=== PATIENT | female | born 1990 | race Caucasian/White ===

== ENCOUNTER → 2020-04-04 | Outpatient (CLI) | payer SELFPAY ==
[2016-09-05 20:10] VITALS: BMI 26.2
[2020-04-06 20:07] LABS: Chlamydia By Nucleic Acid AMP Negative (Negative)
[2020-04-07 01:58] LABS: Gonococcus By Nucleic Acid AMP Negative (Negative)
== END | disposition home or self-care (01) ==
PROVIDERS: Visit Provider Student in an Organized Health Care Education/Training Program
DX: Z11.3 Encounter for screening for infections with a predominantly sexual mode of transmission (principal); Z32.01 Encounter for pregnancy test, result positive
CPT/HCPCS: 87491; 87591

== ENCOUNTER → 2020-05-02 10:55 | Outpatient (CLI) | payer SELFPAY ==
[2020-05-02 13:32] LABS: Absolute Lymphocyte Count 1.88 X10^3/uL (0.83-4.51); Absolute Neutrophil Count 5.8 X10^3/uL (2.0-7.7); Basophil# 0.03 X10^3/uL; Basophil% 0.4 % (0-1); Eosinophil# 0.12 X10^3/uL; Eosinophils% 1.4 % (0-5); Hematocrit 37.1 % (37-47); Hemoglobin 12.1 g/dL (12.0-15.0); Lymphocyte # 1.88 X10^3/ul (4.0); Lymphocyte % 22.4 % (19-41); Mean Corp Hgb Conc 32.6 g/dL (32-36); Mean Corpuscular Hgb 28.7 pg (27.0-32.0); Mean Corpuscular Volume 88.1 fL (81-99); Mean Platelet Vol. 9.3 fl (6.2-12.0); Monocyte# 0.49 X10^3/uL; Monocyte% 5.8 % (0-10); NRBC Flagged by Analyzer 0 % (0-5); Neutrophil % 69.3 % (47-70); Platelet Count 282 K/mm3 (150-450); RBC Distribution Width CV 12.5 % (11.6-14.6); RBC Distribution Width SD 39.8 fl (35.1-43.9); Red Blood Count 4.21 M/mm3 (4.2-5.4); White Blood Count 8.4 K/mm3 (4.4-11.0)
[2020-05-02 13:33] LABS: Color, Urine Yellow (Yellow); Glucose, Dipstick Normal (Normal); Ketone-Dipstick Negative (Negative); Leukocyte Esterase-Dipstick 25 /ul (Negative); Nitrite-Dipstick Negative (Negative); Occult Blood-Urine Negative /ul (Negative); Protein-Dipstick Negative (Negative); Urine Bilirubin Dipstick Negative (Negative); Urine Clarity Clear (Clear); Urine Urobilinogen Normal (Normal)
[2020-05-02 13:48] LABS: Amphetamine Urine VISTA NEGATIVE (<1000 ng/mL); Barbiturate Urine VISTA NEGATIVE (< 200 ng/mL); Benzodiazepine Urine VISTA NEGATIVE (< 200 ng/mL); Cocaine Urine VISTA NEGATIVE (< 300 ng/mL); Ecstacy Urine VISTA NEGATIVE (< 500 ng/mL); Methadone Urine VISTA NEGATIVE (< 300 ng/mL); PCP Urine VISTA NEGATIVE (< 25 ng/mL); THC Urine VISTA NEGATIVE (< 50 ng/mL); Vista UDS pH Range 6
[2020-05-02 14:20] LABS: HIV - WCH Non-Reactive (Nonreactive); Hepatitis B Surface Antigen Non-Reactive (Nonreactive); Rubella IgG 39.2 IU/mL
[2020-05-02 14:21] LABS: Hepatitis C Antibody Non-Reactive (Nonreactive)
[2020-05-03 21:00] LABS: V-Zoster IgG (Immunity) 1247 index (Immune >165)
[2020-05-04 01:46] LABS: Prenatal RPR NONREACTIVE (NONREACTIVE)
== END ==
PROVIDERS: Visit Provider Student in an Organized Health Care Education/Training Program
DX: Z34.82 Encounter for supervision of other normal pregnancy, second trimester (principal)
CPT/HCPCS: 36415; 80307; 81002; 85025; 86703; 86762; 86787; 86803; 87086; 87088; 87340

== ENCOUNTER → 2020-05-30 | Outpatient (CLI) | payer SELFPAY ==
[2016-09-05 20:10] VITALS: BMI 26.2
[2020-06-02 17:41] LABS: HPV Reflexed? NOT INDICATED
== END | disposition home or self-care (01) ==
LOC: LABSPEC 11:13
PROVIDERS: Visit Provider Student in an Organized Health Care Education/Training Program
DX: Z12.4 Encounter for screening for malignant neoplasm of cervix (principal)
CPT/HCPCS: 88175; G0145

== ENCOUNTER → 2020-07-25 13:43 | Outpatient (CLI) | payer SELFPAY ==
[2016-09-05 20:10] VITALS: BMI 26.2
[2020-07-25 15:48] LABS: Hematocrit 30.1 % (37-47); Mean Corp Hgb Conc 33.2 g/dL (32-36); Mean Corpuscular Hgb 28.9 pg (27.0-32.0); Mean Platelet Vol. 9.2 fl (6.2-12.0); Platelet Count 308 K/mm3 (150-450); RBC Distribution Width CV 12.5 % (11.6-14.6); RBC Distribution Width SD 39.5 fl (35.1-43.9); Red Blood Count 3.46 M/mm3 (4.2-5.4); White Blood Count 11.3 K/mm3 (4.4-11.0)
[2020-07-25 15:53] LABS: Glucose Challenge Gest 1H 50g 98 mg/dL (70-140)
== END ==
PROVIDERS: Visit Provider Student in an Organized Health Care Education/Training Program
DX: Z34.82 Encounter for supervision of other normal pregnancy, second trimester (principal)
CPT/HCPCS: 36415; 82950; 85027

== ENCOUNTER → 2020-08-08 11:33 | Outpatient (CLI) | payer SELFPAY ==
[2016-09-05 20:10] VITALS: BMI 26.2
[2020-08-08 12:38] LABS: Hematocrit 30.8 % (37-47); Hemoglobin 9.9 g/dL (12.0-15.0); Mean Corp Hgb Conc 32.1 g/dL (32-36); Mean Corpuscular Hgb 27.2 pg (27.0-32.0); Mean Corpuscular Volume 84.6 fL (81-99); Platelet Count 319 K/mm3 (150-450); RBC Distribution Width CV 12.5 % (11.6-14.6); RBC Distribution Width SD 37.9 fl (35.1-43.9); Red Blood Count 3.64 M/mm3 (4.2-5.4); White Blood Count 10.7 K/mm3 (4.4-11.0)
[2020-08-08 12:44] LABS: ALB/GLOB Ratio 0.7 RATIO (0.9-2.4); AST(SGOT) 13 U/L (15-37); Alanine Aminotransfer ALT/SGPT 12 U/L (13-56); Albumin, Serum 2.9 g/dL (3.2-5.0); Alkaline Phosphatase 91 U/L (45-117); Anion Gap 6 (5-15); BUN 7 mg/dL (7-18); BUN/Creat Ratio 14.3 RATIO (10-20); Calcium,Total 8.7 mg/dL (8.5-10.1); Chloride 107 mmol/L (98-107); Creatinine, Serum 0.49 mg/dL (0.55-1.02); EST Glomerular Filtration Rate 158 mL/min (>60); Est Glom Filt Rate - Afr Amer 191 mL/min (>60); Globulin 4.3 g/dL (2.2-4.2); Glucose 74 mg/dL (74-106); Potassium 3.4 mmol/L (3.5-5.1); Protein, Total 7.2 g/dL (6.4-8.2); Sodium Level 137 mmol/L (136-145)
== END ==
PROVIDERS: Visit Provider Student in an Organized Health Care Education/Training Program
DX: O26.86 Pruritic urticarial papules and plaques of pregnancy (PUPPP) (principal); Z3A.00 Weeks of gestation of pregnancy not specified
CPT/HCPCS: 36415; 80053; 85027

== ENCOUNTER → 2020-10-05 10:31 | Outpatient (CLI) | payer SELFPAY ==
[2016-09-05 20:10] VITALS: BMI 26.2
[2020-10-05 13:12] LABS: Hematocrit 31.4 % (37-47); Hemoglobin 9.6 g/dL (12.0-15.0); Mean Corp Hgb Conc 30.6 g/dL (32-36); Mean Corpuscular Hgb 24.7 pg (27.0-32.0); Mean Corpuscular Volume 80.9 fL (81-99); Platelet Count 304 K/mm3 (150-450); RBC Distribution Width SD 41.1 fl (35.1-43.9); Red Blood Count 3.88 M/mm3 (4.2-5.4); White Blood Count 13.5 K/mm3 (4.4-11.0)
[2020-10-05 13:28] LABS: Ferritin 6 ng/mL (8-252)
== END ==
PROVIDERS: PCP Family Medicine; Visit Provider Student in an Organized Health Care Education/Training Program
DX: Z36.85 Encounter for antenatal screening for Streptococcus B (principal)
CPT/HCPCS: 36415; 82728; 85027; 87081

== ENCOUNTER → 2020-11-03 | Outpatient (CLI) | payer SELFPAY ==
[2016-09-05 20:10] VITALS: BMI 26.2
== END | disposition home or self-care (01) ==
LOC: LABSPEC 10:11
PROVIDERS: PCP Family Medicine; Visit Provider Student in an Organized Health Care Education/Training Program
DX: Z36.85 Encounter for antenatal screening for Streptococcus B (principal)
CPT/HCPCS: 87081

== ENCOUNTER 2020-11-04 23:53 | Inpatient (IN) | payer SELFPAY ==
[2016-09-05 20:10] VITALS: BMI 26.2
[2020-11-05] VITALS (18 sets, daily range): BP systolic 107–144; BP diastolic 42–84; PULSE 67–83; RESP 16–18; TEMP 35.6–36.8; O2SAT 99–100; BMI 28.0
[2020-11-05] MEDS: 0.9% Saline Lock 10 ML Syringe IV (00:13)
--- NOTE | 2020-11-05 00:26 | PCM.HPOB.BLA ---
History and Physical Chief complaint: Contractions History of present illness: 30-year-old G2, P1 at 40 weeks and 6 days with LUIS: 10/31/2019 1 x 10-week ultrasound arrives with contractions. Denies headache, chest pain, shortness of breath, nausea vomiting, right upper quadrant pain. Patient states good movement. Obstetrical history: G1: at term G2: Current Past medical history: None Medications: vitamin Past surgical history: [place] teeth extraction Allergies: No known drug allergies Social history: Denies smoking, alcohol, drug use Family history: Denies history of DVT or PE Review of systems: Besides the above pertinent positives a full review of systems was performed and found to be negative Physical exam: Vital Signs Temp Pulse BP Pulse Ox 11/05/20 00:08 97.3 F L 83 144/84 H 11/05/20 00:07 97.4 F L 99 General: Normal-appearing no acute distress HEENT: Normocephalic atraumatic no cervical lymphadenopathy Cardiac/respiratory: No use of accessory muscles, nonlabored breathing Abdomen: Soft, nontender, gravid Extremities: No peripheral edema normal peripheral pulses Psych: Normal affect normal demeanor nonpressured speech Assessment and plan: This is a 30-year-old G2, P1 at 40 weeks and 6 days in labor -Admit labor and delivery -CEFM -GBS negative -Routine orders -Anesthesia to see
[2020-11-05 00:54] LABS: Absolute Lymphocyte Count 3.14 X10^3/uL (0.83-4.51); Absolute Neutrophil Count 9.1 X10^3/uL (2.0-7.7); Basophil# 0.05 X10^3/uL; Basophil% 0.4 % (0-1); Eosinophil# 0.15 X10^3/uL; Eosinophils% 1.1 % (0-5); Hematocrit 32.4 % (37-47); Hemoglobin 9.7 g/dL (12.0-15.0); Lymphocyte # 3.14 X10^3/ul (0.83-4.51); Lymphocyte % 23.2 % (19-41); Mean Corp Hgb Conc 29.9 g/dL (32-36); Mean Corpuscular Hgb 23.3 pg (27.0-32.0); Mean Corpuscular Volume 77.9 fL (81-99); Mean Platelet Vol. 10.2 fl (6.2-12.0); Monocyte# 0.96 X10^3/uL; Monocyte% 7.1 % (0-10); NRBC Flagged by Analyzer 0.2 % (0-5); Neutrophil # 9.08 X10^3/uL (2.7-7.7); Neutrophil % 67.2 % (47-70); Platelet Count 317 K/mm3 (150-450); RBC Distribution Width CV 15.9 % (11.6-14.6); RBC Distribution Width SD 43.8 fl (35.1-43.9); Red Blood Count 4.16 M/mm3 (4.2-5.4); White Blood Count 13.5 K/mm3 (4.4-11.0)
--- NOTE | 2020-11-05 01:02 | PCM.PN.OB ---
Subjective: Patient going natural, painful contractions but handling it well. - Physical Exam Vitals/I&O's: Vital Signs Temp Pulse BP Pulse Ox 97.3 F L 83 144/84 H 99 11/05/20 00:08 11/05/20 00:08 11/05/20 00:08 11/05/20 00:07 Weight: 153 lb 9.6 oz Body Mass Index (BMI) 28.0 General: Alert, Oriented x3, Cooperative, No apparent distress HEENT: Atraumatic, Normocephalic Oral: Moist Mucosa Neck: Supple Neurological: Neuro grossly intact Psych/Mental Status: Normal Affect, Appropriate, Alert and oriented to time, place, person, mood and affect Laboratory Results 11/05/20 00:13: WBC 13.5 H, RBC 4.16 L, Hgb 9.7 L, Hct 32.4 L, MCV 77.9 L, MCH 23.3 L, MCHC 29.9 L, RDW Std Deviation 43.8, RDW Coeff of Machelle 15.9 H, Plt Count 317, MPV 10.2, Immature Gran % (Auto) 1.000 H, Neut % (Auto) 67.2, Lymph % (Auto) 23.2, Ritchie % (Auto) 7.1, Eos % (Auto) 1.1, Baso % (Auto) 0.4, Absolute Neuts (auto) 9.1 H, Absolute Lymphs (auto) 3.14, Nucleated RBC % 0.2 11/05/20 00:13: Blood Type Pending, Antibody Screen Pending Current Medications Acetaminophen (Acetaminophen 500 Mg Tablet) 500 - 1,000 mg PO Q6H PRN PRN PRN Reason: Pain Score 1-3 Al Hydroxide/Mg Hydroxide (Mag Hydrox/Al Hydrox/Simeth 30 Ml Udc) 15 - 30 ml PO Q4H PRN PRN PRN Reason: INDIGESTION Citric Acid/Sodium Citrate (Sodium Citrate/Citric Acid 30 Ml Udc) 30 ml PO X1 PRN PRN Reason: Section Fentanyl Citrate (Fentanyl 100 Mcg/2 Ml Ampul) 25 - 50 mcg IV Q2H PRN PRN PRN Reason: Pain Score 4-10 Lactated Ringer's () 500 mls @ 999 mls/hr IV .Q31M PRN PRN Reason: Epidural Lactated Ringer's () 500 mls @ 999 mls/hr IV .Q31M PRN PRN Reason: Corrective Measures Lactated Ringer's () 1,000 mls @ 50 mls/hr IV .Q20H PHYLICIA Ondansetron HCl (Ondansetron 4 Mg/2 Ml Vial) 4 mg IV Q4H PRN PRN PRN Reason: NAUSEA Prochlorperazine Edisylate (Prochlorperazine 10 Mg/2 Ml Vial) 10 mg IV Q6H PRN PRN PRN Reason: NAUSEA Sodium Chloride (0.9% Saline Lock 10 Ml Syringe) 10 - 40 ml IV X1 PRN PRN Reason: SALINE FLUSH Medical Necessity - Tobacco Use Smoking Status: Never smoker Assessment/Plan Patient seen and examined. No change in cervix. AROM clear fluid. We will continue current management
[2020-11-05] MEDS: Oxytocin 30 units/NS 500 ml 30 UNITS/500 ML IV.SOLN 334 UNITS IV (01:59)
--- NOTE | 2020-11-05 02:16 | DCINST_ITS ---
<Eliseo Mata - Last Filed: 11/05/20 02:16> Discharge Diet: No Restrictions Discharge Activity: Return to Normal Activity, May Drive, May Shower May resume sexual activity in: 4-6 weeks Weight Bearing Status: Weight bearing as tolerated Call your doctor if your incision/area has: Continuous Slow Oozing, Foul Smelling Discharge Call your doctor if you observe: Fever of 101 or Higher, Shortness of breath, Chest pain Additional Instructions: If you experience any of the following, contact your healthcare provider. * Bleeding that soaks a pad every hour for 2 hours * Fever 100.4 or higher * Unrelieved incision or abdominal pain * Swelling, redness, discharge or bleeding from your incision or episiotomy site * Your incision begins to separate * Problems urinating (including inability to urinate or burning while urinating). * Visual changes * Severe headache * Flu-like symptoms * Pain or redness in one of both of your breasts * Pain, warmth, tenderness or swelling in your legs, especially the calf area * Frequent nausea and vomiting * Symptoms of depression or anxiety If you experience any of the following, call 911 or go to the nearest Emergency Room. * Chest pain * Problems breathing * Seizure activity * Partial or complete paralysis of a body part, slurred speech, weakness or drooping of the face, or a sudden inability to walk or hold your balance Allergies/Adverse Reactions: Allergies nut - unspecified Allergy (Verified 09/05/16 20:14) Anaphylaxis cashews and pistachios Medications to take at Discharge Vits [Prenatabs FA] 1 tablet PO DAILY 09/05/16 Iron 11/05/20 Please Follow Up With: Mary Beth Mata DO When: 3 week telehealth visit, 6 week visit Primary Care Physician: Johann Carrillo MD [Primary Care Provider] - Test Results: Test results from this visit will be discussed in further detail at your follow- up appointment, if applicable. <Mary Beth Mata - Last Filed: 11/06/20 11:33> Additional Instructions: If you experience any of the following, contact your healthcare provider. * Bleeding that soaks a pad every hour for 2 hours * Fever 100.4 or higher * Unrelieved incision or abdominal pain * Swelling, redness, discharge or bleeding from your incision or episiotomy site * Your incision begins to separate * Problems urinating (including inability to urinate or burning while urinating). * Visual changes * Severe headache * Flu-like symptoms * Pain or redness in one of both of your breasts * Pain, warmth, tenderness or swelling in your legs, especially the calf area * Frequent nausea and vomiting * Symptoms of depression or anxiety If you experience any of the following, call 911 or go to the nearest Emergency Room. * Chest pain * Problems breathing * Seizure activity * Partial or complete paralysis of a body part, slurred speech, weakness or drooping of the face, or a sudden inability to walk or hold your balance Test Results: Test results from this visit will be discussed in further detail at your follow- up appointment, if applicable.
--- NOTE | 2020-11-05 02:17 | OP.PCM_ITS ---
Vaginal Delivery Date of Procedure: 11/05/20 Pre-Operative Diagnosis: Term Post-Operative Diagnosis: Term Surgery/ Procedure Performed: Spontaneous Vaginal Delivery Type of Anesthesia: None Description of Procedure: Normal spontaneous vaginal delivery of a viable female infant, DALE. Head and shoulders delivered with ease. Cord cut and clamped. Baby handed off to nursing. Placenta delivered via cord traction and fundal massage. Second- degree midline perineal laceration noted and repaired in typical fashion. EBL 300 cc Apgars 8/9
[2020-11-06 00:26] VITALS: BP 115/55; PULSE 77; RESP 18; TEMP 36.7
[2020-11-06 03:10] VITALS: BP 127/81; PULSE 75; RESP 18; TEMP 36.4
[2020-11-06 08:00] VITALS: BP 121/85; PULSE 75; RESP 16; TEMP 36.4
[2020-11-06] MEDS: Ibuprofen 600 MG Tablet PO (10:37)
--- NOTE | 2020-11-06 11:34 | PCM.PN.OB ---
Subjective: day 1. Feeling well. Lochia minimal. Breast-feeding going well. - Physical Exam Vitals/I&O's: Vital Signs Temp Pulse Resp BP Pulse Ox 97.6 F L 75 16 121/85 H 100 11/06/20 08:00 11/06/20 08:00 11/06/20 08:00 11/06/20 08:00 11/05/20 04:15 Oxygen Delivery Method Room Air Weight: 69.672 kg Body Mass Index (BMI) 28.0 Intake and Output for Last 24 Hours 11/04/20 11/05/20 11/06/20 23:59 23:59 23:59 Intake Total 464.82 / 464.82 Output Total 800 / 800 Balance -335.18 / -335.18 General: Alert, Oriented x3, No apparent distress HEENT: Atraumatic, Normocephalic Neck: Supple Lungs: Normal air movement Cardiovascular: Regular rate Abdomen: Soft, Non Tender - Uterus 2 cm below umbilicus Extremities: No edema Neurological: Cranial nerves II-XII grossly intact Psych/Mental Status: Normal Affect, Appropriate Microbiology Past 72 Hours 11/05/20 01:15 Mucosa - Nose SARS-CoV-2 Antigen (Rapid) - Final Current Medications Acetaminophen (Acetaminophen 500 Mg Tablet) 1,000 mg PO Q8H PRN PRN PRN Reason: Pain Score 1-10 Bisacodyl (Bisacodyl 10 Mg Suppository) 10 mg RC UD PRN PRN Reason: If no BM Dibucaine (Dibucaine 30 Gm Tube) 1 applic TOPICAL TID PRN PRN; Protocol PRN Reason: Discomfort Hydrocortisone (Hydrocortisone 2.5% Crm) 1 applic TOPICAL TID PRN PRN; Protocol PRN Reason: Discomfort Ibuprofen (Ibuprofen 600 Mg Tablet) 600 mg PO Q6H PRN PRN PRN Reason: Pain Score 1-10 Last Admin: 11/06/20 10:37 Dose: 600 mg Documented by: Ondansetron HCl (Ondansetron 4 Mg/2 Ml Vial) 4 mg IV Q4H PRN PRN PRN Reason: Nausea Senna/Docusate Sodium (Senna/Docusate Sodium 1 Tablet) 1 - 2 tablet PO DAILY PRN PRN PRN Reason: Constipation Simethicone (Simethicone 80 Mg Tablet) 80 mg PO PCHS PRN PRN Reason: Indigestion/Stomach pain Sodium Chloride (0.9% Saline Lock 10 Ml Syringe) 5 - 15 ml IV UD PRN PRN Reason: SALINE FLUSH Medical Necessity - Tobacco Use Smoking Status: Never smoker Assessment/Plan day #1 status post . Anemia of , continue iron supplementation at home. Breast-feeding. Discussed stool softeners if needed. Home today. Follow-up 3 weeks telehealth in 6-week in person visit.
[2020-11-06 14:00] VITALS: BP 131/73; PULSE 75; RESP 16; TEMP 36.6
--- NOTE | 2020-11-06 14:01 | CASEMGMT ---
Social Work Brief Assessment Labor and Delivery Unit Patient Address:[address] [place] [address] [address], [place] [address] Phone number: [phone] Date of Referral/Notification: 11.05.2020 Time of Referral: [id number] Referred By: Dr. Godoy Date of Intervention: 11.06.2020 Time of Intervention: 1200 Reason for Referral: maternal history of depression Informant: Medical record and mother of baby (MOB) Dora Mata; Father of baby (FOB) Benjamin Mata present for part of conversation. History: MOB is a 30 year old female, to the FOB who is 31 years old. MOB is G2, P1 to 2 after delivering baby Susan Mata on 11.05.2020. care started at 14 weeks and regular thereafter. weight 7 pounds 11 ounces, Apgars 8 and 9 at 1 and 5 minutes of life respectively. Older daughter at home is Jaya, born 09.06.2016. 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 FOB works in real estate. MOB reports to have a good support system from family and friends. No concerns for either parent reported about substance use issues. MOB states to not even drink alcohol. MOB reports history of some depression, which MOB reports belief was more of the baby blues. MOB describes crying in the afternoons, and when the FOB came home, to have felt overwhelmed. MOB reports the feeling resolved around month 3-4 after delivery. MOB reports her own mother had history of post depression when with this MOB. MOB denies any history of suicidal ideation, planning, intent, or action. During private conversation, the MOB denies any history of abuse or violence in the relationship with the FOB. Assessment: Met with MOB and FOB together and then alone with the MOB. FOB showered when this junior technical writer spoke privately with the MOB. Handwrote out domestic violence questions to ensure privacy. Completed the [place] depression screen with the MOB and score is a 1. MOB reports to be feeling good, and reports to feel that life situation is better this time in that MOB is not working outside of the home. MOB reports to love being at home with the older daughter and not having the stress of working outside of the home pluse caregiving the children. MOB teary eyed when discussing prior experience with depression, reports to feel she will be more will to speak up this time of symptoms arise. MOB reports she can talk to the FOB and MOB's mother if needed. MOB reports would be will to consider counseling if needed as well. MOB reports to be looking forward to going home, repots to have needed supplies, and to have an adequate support system. MOB expressed understanding about risk for depression and anxiety again, as well as receptive to information and resources offered this date. Provided MOB with resource packet for mood and anxiety disorders, as well a local and online resources and support. No voiced concerns by the nursing staff regarding mother/child interactions or bonding. Plan: MOB and baby to home today. MOB has been given information on support for depression, as well as education on risk factors and things to look out for. No further needs requested or indicated. -ALLEN Lacey MSW *Information documented in this assessment generated with [employer]*
--- NOTE | 2020-11-24 11:35 | NURSING ---
While reviewing chart , EDC on Admission screen #1 entered in error. Should be 10/30, not 10/19. If I edit, the calculations are skewed.
== END 2020-11-06 14:35 | disposition home or self-care (01) | DRG 807 ==
PROVIDERS: Admitting Provider Obstetrics & Gynecology; PCP Family Medicine; Visit Provider Obstetrics & Gynecology
DX: O99.02 Anemia complicating childbirth (principal); Z37.0 Single live birth; D64.9 Anemia, unspecified; O70.1 Second degree perineal laceration during delivery; Z3A.40 40 weeks gestation of pregnancy
CPT/HCPCS: 59025; 59050; 85025; 86850; 86900; 86901; 87426; 99218; A4216; G0378